=== PATIENT | female | born 1955 | race Caucasian/White ===

== ENCOUNTER 2022-07-04 14:02 | Outpatient (RCR) | payer MEDICARE, OTHER | END 2022-07-06 | disposition home or self-care (01) | LOC: CR 14:02 | PROVIDERS: ATTEND Specialist | DX: Z29.8 Encounter for other specified prophylactic measures (principal); Z95.1 Presence of aortocoronary bypass graft; Z98.890 Other specified postprocedural states | CPT/HCPCS: 93798 ==

== ENCOUNTER → 2022-08-06 | Outpatient (RCR) | payer MEDICARE, OTHER | END | disposition home or self-care (01) | LOC: CR 07-09 06:58 | DX: Z29.8 Encounter for other specified prophylactic measures (principal); Z95.1 Presence of aortocoronary bypass graft; Z98.890 Other specified postprocedural states | CPT/HCPCS: 93798 ==

== ENCOUNTER 2022-08-13 13:58 | Outpatient (RCR) | payer MEDICARE, OTHER | END 2022-09-05 | disposition home or self-care (01) | LOC: CR 13:58 | DX: Z29.8 Encounter for other specified prophylactic measures (principal); Z95.1 Presence of aortocoronary bypass graft; Z98.890 Other specified postprocedural states | CPT/HCPCS: 93798 ==